=== PATIENT | male | born 1960 | race Caucasian/White ===

== ENCOUNTER → 2018-12-25 | Outpatient (CLI) | payer BC ==
[~2018-12-25] MED LIST: CLIN300C5 PO; ISOVUE-370 76% 100ML VIAL (Q9967) As Ordered ONE
--- NOTE | 2018-12-28 06:14 | REP ---
Clinical: Vocal cord paralysis. Technique: Axial contrast enhanced images from the thoracic inlet to the upper abdomen with coronal and sagittal re-formations using 100 ml Isovue 370 intravenous contrast material. Findings: Bilateral lung damon are clear and without focal consolidation, nodule or mass lesion. No effusion. No pneumothorax. Tracheobronchial tree is patent. No axillary, hilar, or mediastinal adenopathy is appreciated. Mediastinum demonstrates atherosclerotic changes to the thoracic aorta and coronary arteries without aortic aneurysm, cardiomegaly or pericardial effusion. Limited upper abdomen demonstrates normal bilateral adrenal glands. Surrounding musculoskeletal structures are intact without focal osseous abnormality. Impression: Normal contrast enhanced chest CT. No acute mediastinal or pleuroparenchymal process appreciated. Electronically Signed by Wesley Brizuela MD 12/28/2018 06:06 A
--- NOTE | 2018-12-28 16:03 | REPVR ---
EXAM: CT Neck With Contrast EXAM DATE/TIME: 12/25/2018 5:27 PM CLINICAL HISTORY: 58 years old, male; Other: Vocal cord paralysis; Additional info: Paralysis of vocal cords and larynx TECHNIQUE: Imaging protocol: Axial computed tomography images of the neck with intravenous contrast. Coronal and sagittal reformatted images were created and reviewed. Radiation optimization: All CT scans at this facility use at least one of these dose optimization techniques: automated exposure control; mA and/or kV adjustment per patient size (includes targeted exams where dose is matched to clinical indication); or iterative reconstruction. Contrast material: ISOVUE 370; Contrast volume: 75 ml; Contrast route: IV; COMPARISON: CT Spine,cervical w/o contrast 02/19/2012 2:58 PM FINDINGS: Nasopharynx: Normal. Oropharynx: Normal. No significant tonsillar enlargement. Hypopharynx: The right pyriform sinus is larger than the contralateral pyriform sinus. The right aryepiglottic fold is larger and more medial the right arachnoid cartilage is also medially rotated. These are signs of right vocal cord paralysis. than the contralateral side. Larynx: See Hypopharynx Finding. Retropharyngeal space: Normal. Submandibular/Parotid glands: Normal. Glands are normal in size. Thyroid: Normal. No enlarged or calcified nodules. Lymph nodes: No cervical adenopathy. No. Trachea: Visualized trachea is unremarkable. Lungs: Normal as visualized. Bones/joints: Normal. No acute fracture. Soft tissues: There is a soft tissue density measuring 12 mm in long axis and 19 mm in short axis in the right peritracheal region of the superior mediastinum. This is immediately inferior to the right brachiocephalic artery bifurcation, series 201 image 78. Slightly inferior to this there is a partially visualized 10 mm short axis right paratracheal lymph node. A chest CT is separately reported. IMPRESSION: 1. There are findings of unilateral right vocal cord paralysis. 2. There are 2 enlarged lymph nodes in the partially visualized right superior mediastinum. The larger measures 12 x 19 mm and is directly inferior to the right brachiocephalic artery bifurcation. This is the expected location of the inferior loop of the recurrent right laryngeal nerve. Electronically signed by: Peter Mann On 12/28/2018 16:02:30 PM
== END ==
LOC: M RAD 16:55
PROVIDERS: ATTEND Specialist
DX: J38.01 Paralysis of vocal cords and larynx, unilateral (principal); R59.0 Localized enlarged lymph nodes
CPT/HCPCS: 70491; 71260; Q9967

== ENCOUNTER 2019-01-05 10:42 | Emergency (ER) | payer BC ==
[~2019-01-05] VITALS: Ht 175.3 cm; Wt 97.3 kg
--- NOTE | 2019-01-05 12:39 | REP ---
Are right shoulder three views : There is no fracture or dislocation. Mineralization and joint spaces are normal. There are no calcifications or foreign bodies. Impression: Negative right shoulder . Electronically Signed by Juan Ramon Stallworth MD 01/05/2019 12:30 P
[2019-01-05 14:39] VITALS: BP 136/84
[2019-01-05] MEDS ORDERED: CLIN300C5 PO (14:39)
== END 2019-01-05 14:47 | disposition home or self-care (01) ==
LOC: M ED 10:42
DX: K02.9 Dental caries, unspecified (principal); R59.0 Localized enlarged lymph nodes; L08.9 Local infection of the skin and subcutaneous tissue, unspecified; M25.511 Pain in right shoulder; E78.5 Hyperlipidemia, unspecified; N40.0 Benign prostatic hyperplasia without lower urinary tract symptoms; Z88.8 Allergy status to other drugs, medicaments and biological substances

== ENCOUNTER → 2019-01-18 | Outpatient (REF) | payer BC ==
[~2019-01-18] MED LIST changes: -ISOVUE-370 76% 100ML VIAL (Q9967) As Ordered ONE
[2019-01-18 13:56] LABS: BLOOD UREA NITROGEN 12 MG/DL (7-18); CREATININE FOR GFR 0.98 MG/DL (0.70-1.30); GLOMERULAR FILTRATION RATE > 60.0 (>49)
== END ==
LOC: M LAB REF 12:32
PROVIDERS: ATTEND Thoracic Surgery (Cardiothoracic Vascular Surgery)
DX: Z01.812 Encounter for preprocedural laboratory examination (principal); J38.00 Paralysis of vocal cords and larynx, unspecified

== ENCOUNTER → 2019-01-19 | Outpatient (CLI) | payer BC ==
[~2019-01-19] MED LIST changes: +ISOVUE-370 76% 100ML VIAL (Q9967) As Ordered ONE
--- NOTE | 2019-01-19 11:23 | REP ---
REASON FOR EXAM: Vocal cord paralysis. COMPARISON: 12/25/2018 CONTRAST: 100 mL Isovue 370. There is a prominent unchanged superior pericardial recess. No mediastinal mass or adenopathy has developed. There is no hilar mass or adenopathy. There are no pleural or pericardial effusions. There is no change in the appearance of the imaged upper abdomen. The images osseous structures are stable and intact. Evaluation of the lung damon shows a stable 5 mm-size nodule in the left lower lobe. There is a stable 3 mm-size pleural-based nodule in the right lower lobe. There are no new abnormal nodules, masses, or opacities. IMPRESSION: Stable CT examination of the chest with findings as described above. There are two small nodules as described above. According to the revised Fleischner Society criteria, the largest of the two nodules represent a category 2 lesion. Since it was present on a prior exam, it is not considered a new finding. Category [address] screening. Electronically Signed by Ralf Thurman DO 01/19/2019 12:02 P
== END ==
LOC: M RAD 06:54
PROVIDERS: ATTEND Thoracic Surgery (Cardiothoracic Vascular Surgery)
DX: G54.5 Neuralgic amyotrophy (principal); R22.2 Localized swelling, mass and lump, trunk

== ENCOUNTER 2023-09-29 19:05 | Inpatient (IN) | payer MEDICARE, OTHER ==
[~2023-09-29] VITALS: Ht 175.3 cm; Wt 103.5 kg
[~2023-09-29 19:05] MED LIST changes: +CLIN-250 PO; -CLIN300C5 PO; -ISOVUE-370 76% 100ML VIAL (Q9967) As Ordered ONE
[2023-09-29] MEDS: NS 1,000 ML IV SCH (20:19)
[2023-09-29 21:38] LABS: BASO % 0.1 % (0.0-1.0); EOS # 0.1 10^3/uL (0.0-0.5); EOS % 0.3 % (0.0-3.0); HEMATOCRIT 41.6 % (42.0-52.0); HEMOGLOBIN 14.2 g/dl (13.5-17.5); LYMPH # 1.4 10^3/uL (1.5-5.0); LYMPH % 9.2 % (24.0-44.0); MEAN CORPUSCULAR HEMOGLOBIN 29.7 pg (27.0-33.0); MEAN CORPUSCULAR HGB CONC 34.1 g/dl (32.0-36.5); MONO # 0.8 10^3/uL (0.0-0.8); MONO % 5.2 % (2.0-8.0); NEUTROPHILS # 13.2 10^3/uL (1.5-8.5); NEUTROPHILS % 84.8 % (36.0-66.0); PLATELET COUNT, AUTOMATED 186 10^3/uL (150-450); RED BLOOD COUNT 4.78 10^6/uL (4.30-6.10); WHITE BLOOD COUNT 15.5 10^3/uL (4.0-10.0)
[2023-09-29] MEDS: MORPHINE 4 MG/ML 1ML VIAL IV ONE (21:40)
[2023-09-29] MEDS: ONDANSETRON 4MG 2ML VIAL IV ONE (21:40)
[2023-09-29] MEDS: GASTROGRAFIN SOLUTION 30ML PO SCH (21:44)
[2023-09-29 22:10] LABS: LIPASE 22 U/L (12-53)
[2023-09-29 22:11] LABS: CPK CREATINE PHOSPHOKINASE 50 U/L (46-171)
[2023-09-29 22:12] LABS: ALBUMIN 3.8 G/DL (3.2-5.2); ALKALINE PHOSPHATASE 96 U/L (46-116); ALT/SGPT 30 U/L (7.0-40); AST/SGOT 19 U/L (<34); BILIRUBIN,DIRECT 0.3 MG/DL (<0.4); BILIRUBIN,TOTAL 0.8 MG/DL (0.3-1.2); BLOOD UREA NITROGEN 13 MG/DL (9-23); CALCIUM LEVEL 9.4 MG/DL (8.3-10.6); CARBON DIOXIDE LEVEL 26 MMOL/L (20-31); CHLORIDE LEVEL 106 MMOL/L (98-107); CREATININE FOR GFR 0.95 MG/DL (0.70-1.30); GLOMERULAR FILTRATION RATE > 60.0 (>49); GLUCOSE, FASTING 184 MG/DL (74-106); SODIUM LEVEL 139 MMOL/L (136-145); TOTAL PROTEIN 6.5 G/DL (5.7-8.2)
[2023-09-29 22:37] LABS: CK-MB VALUE MASS < 1.0 NG/ML (<3.6)
[2023-09-29] MEDS ORDERED: ISOVUE-370 76% 100ML VIAL As Ordered ONE (22:53)
[2023-09-30] MEDS ORDERED: DEXTROSE 50% 50ML SYRINGE IV PRN (03:20)
[2023-09-30] MEDS ORDERED: GLUCAGON INJ 1MG VIAL SC PRN (03:20)
[2023-09-30] MEDS ORDERED: ONDANSETRON 4MG 2ML VIAL IV PRN (03:20)
[2023-09-30] MEDS ORDERED: GLUCOSE 4GM CHEW TABLET PO PRN (03:20)
[2023-09-30] MEDS ORDERED: HYDROMORPHONE HCL 0.5 MG/ 0.5 ML SYRINGE IV PRN (03:20)
[2023-09-30] MEDS: LR 1,000 ML IV SCH (04:39)
[2023-09-30] MEDS: INSULIN LISPRO (NovoLOG) PER UNIT SC SCH (06:01)
[2023-09-30 08:29] LABS: HEMATOCRIT 40.5 % (42.0-52.0); HEMOGLOBIN 13.5 g/dl (13.5-17.5); MEAN CORPUSCULAR HEMOGLOBIN 29.7 pg (27.0-33.0); MEAN CORPUSCULAR HGB CONC 33.3 g/dl (32.0-36.5); MEAN CORPUSCULAR VOLUME 89.2 fl (80.0-96.0); PLATELET COUNT, AUTOMATED 180 10^3/uL (150-450); RED BLOOD COUNT 4.54 10^6/uL (4.30-6.10)
[2023-09-30] MEDS ORDERED: TERA10CA3 PO (08:38)
[2023-09-30] MEDS ORDERED: DORZ2SOL5 OU (08:38)
[2023-09-30] MEDS ORDERED: SIMV20TA22 PO (08:38)
[2023-09-30] MEDS ORDERED: XALA0.007 OU (08:38)
[2023-09-30] MEDS ORDERED: COMB0.2S OU (08:38)
[2023-09-30] MEDS ORDERED: FINA5TAB2 PO (08:38)
[2023-09-30] MEDS ORDERED: HOME MED LIST COMPLETE! XX SCH ×2 (08:40→09:05)
[2023-09-30 08:55] VITALS: BP 140/70; TEMP 99; O2SAT 99
[2023-09-30 08:59] LABS: BLOOD UREA NITROGEN 9 MG/DL (9-23); CALCIUM LEVEL 9.2 MG/DL (8.3-10.6); CARBON DIOXIDE LEVEL 30 MMOL/L (20-31); CHLORIDE LEVEL 105 MMOL/L (98-107); CREATININE FOR GFR 0.99 MG/DL (0.70-1.30); GLOMERULAR FILTRATION RATE > 60.0 (>49); GLUCOSE, FASTING 108 MG/DL (74-106); POTASSIUM SERUM 4.7 MMOL/L (3.5-5.1); SODIUM LEVEL 140 MMOL/L (136-145)
[2023-09-30] MEDS: TIMOLOL MALEATE 0.5% OPHTH SOLN 5 ML OU SCH (09:00)
[2023-09-30] MEDS: COSOPT OCUMETER PLUS 10ML (DORZOLAMIDE/TIMOLOL) OU SCH (09:00)
[2023-09-30] MEDS: FINASTERIDE 5MG TAB PO SCH (09:00)
[2023-09-30] MEDS: BISACODYL 10MG SUPP PR SCH (09:00)
[2023-09-30] MEDS: TERAZOSIN 5MG CAPSULE PO SCH (12:49)
[2023-09-30] MEDS: SIMVASTATIN 20 MG TAB PO SCH (12:50)
[2023-09-30] MEDS: LATANOPROST 0.005% OPHTH SOLN 2.5 ML OU SCH (12:52)
[2023-09-30] MEDS ORDERED: HEPARIN SOD (PORCINE) 5000UNITS/ML 1ML VIAL/SYRINGE SC SCH (14:00)
[2023-09-30 14:13] VITALS: BP 142/75; TEMP 98.6; O2SAT 94
[2023-09-30] MEDS: BRIMONIDINE 0.15% OPHTH SOLN 5 ML OU SCH (15:04)
[2023-09-30 20:10] VITALS: BP 122/94; TEMP 98; O2SAT 96
[2023-09-30] MEDS: ENOXAPARIN 40MG/0.4ML SYRINGE (J1650 PER 10MG) SC SCH (20:40)
[2023-10-01 05:40] VITALS: BP 128/60; TEMP 98.4; O2SAT 92
[2023-10-01 08:11] LABS: HEMATOCRIT 40.6 % (42.0-52.0); HEMOGLOBIN 13.8 g/dl (13.5-17.5); MEAN CORPUSCULAR HEMOGLOBIN 30.1 pg (27.0-33.0); MEAN CORPUSCULAR VOLUME 88.6 fl (80.0-96.0); PLATELET COUNT, AUTOMATED 169 10^3/uL (150-450); RED BLOOD COUNT 4.58 10^6/uL (4.30-6.10); WHITE BLOOD COUNT 7.8 10^3/uL (4.0-10.0)
[2023-10-01 09:22] VITALS: BP 165/83
[2023-10-01] MEDS ORDERED: PEPT262C2 PO (11:02)
== END 2023-10-01 14:24 | disposition home or self-care (01) | DRG 392 ==
LOC: M ED 19:05 → M ED INP 09-30 03:20 → M MS4PR 09-30 08:32
PROVIDERS: ADMIT Internal Medicine; ATTEND Student in an Organized Health Care Education/Training Program
DX: K52.9 Noninfective gastroenteritis and colitis, unspecified (principal); I10 Essential (primary) hypertension; E78.00 Pure hypercholesterolemia, unspecified; H40.9 Unspecified glaucoma; K42.9 Umbilical hernia without obstruction or gangrene; R39.198 Other difficulties with micturition; Z90.49 Acquired absence of other specified parts of digestive tract; Z79.899 Other long term (current) drug therapy; Z88.8 Allergy status to other drugs, medicaments and biological substances